=== PATIENT | female | born 1995 | race Caucasian/White ===

== ENCOUNTER 2016-11-14 14:16 | Emergency (ER) | payer OTHER ==
--- NOTE | ~2016-11-14 | CR126 ---
[facility] A Service of [facility] [place] [place] RADIOLOGY TEXT RESULTS PATIENT: GENARO GONZALEZ LOCATION: SED : 95 UNIT #: [id number] AGE: [address]: Jennifer Richardson APRN SEX: F ORDER DR: [id number] [place] [id number] MR#: [id number] Acc #: [id number] NAME: GENARO GONZALEZ : 1995 SEX: F STUDY DATE/TIME: 11/14/2016 14:05 UNIT: SED ROOM: STUDY DESCRIPTION: CR Foot Complete Min 3 View Lt Attending Physician: Jennifer Richardson A.P.R.N. Ordering Physician: Jennifer Richardson A.P.R.N. Primary Care Physician: No Primary Care Physician MEDICAL IMAGING REPORT This report is preliminary unless electronic signature is present. EXAM Left foot, 3 views. DATE OF EXAM 11/14/2016, 1405 hours. CLINICAL HISTORY 20-year-old who dropped a toy on her left great toe last night with foot pain. COMPARISON Left ankle film, 05/30/2012. FINDINGS AP, lateral and oblique views demonstrate overall normal bone density. There is no fracture, dislocation or periosteal reaction. Specifically, the great toe is normal. IMPRESSION Negative left foot. No fracture seen. Specifically, no fracture seen in the great toe. Dictated by... Krista Padgett M.D. THIS IS AN ELECTRONICALLY VERIFIED REPORT Krista Padgett M.D. at 11/17/2016 9:18 AM JADE/altagracia TD: 11/14/2016 21:04 JOB #: [id number] [facility] A Service [facility] RADIOLOGY TEXT RESULTS PATIENT: GENARO GONZALEZ LOCATION: SED : 95 UNIT #: [id number] AGE: [address]: Jennifer Richardson APRN SEX: F ORDER DR: MEDICAL IMAGING REPORT
[~2016-11-14 14:16] MED LIST: AMOXICILLIN875 MG PO; BACTRIM DS TABL1 TA1 PO; BCP PO; BENZONATATE PO; BIRTH CONTROL IMPLAN; CIPRO PO; FIORICET1 TAB DOB; FLAGYL PO; IBUPROFEN800 MG PO; KEFLEX500 M2 PO; KEFLEX500 MG PO; LOMOTIL WHITE2.5 M1 PO; NAPROXEN250 MG PO; NO MEDICATIONS; PHENERGAN12.5 M2 PR; PHENERGAN25 MG PO; PRENATAL1 TA1 PO; PYRIDIUM PO; ROBITUSSIN A-C S5 ML PO; VOLTAREN75 MG PO; VYVANSE20 MG; ZITHROMAX PO; ZOFRAN ODT4 MG PO; ZOFRAN ODT4 MG SL; ZOFRAN PO; ZOLOFT50 MG PO; [UNRECOGNIZED DRUG - REMARK]
== END 2016-11-14 14:59 | disposition home or self-care (01) ==
LOC: SED 14:16
DX: S90.32XA Contusion of left foot, initial encounter (principal); W22.8XXA Striking against or struck by other objects, initial encounter; Y92.009 Unspecified place in unspecified non-institutional (private) residence as the place of occurrence of the external cause
CPT/HCPCS: 29405; 73630; 99283

== ENCOUNTER 2017-01-07 11:29 | Emergency (ER) | payer OTHER ==
[2017-01-07 11:17] LABS: URINE SOURCE CLEAN CATCH
[2017-01-07 11:22] LABS: URINE APPEARANCE CLEAR; URINE BILIRUBIN NEG (NEG); URINE BLOOD NEG (NEG); URINE COLOR YELLOW; URINE GLUCOSE NEG (NORM); URINE KETONE NEG (NEG); URINE LEUKOCYTE ESTERASE NEG (NEG); URINE NITRATE NEG (NEG); URINE PH 6.5 (5-8); URINE PROTEIN NEG (NEG); URINE UROBILINOGEN 0.2 MG/DL (NORM)
[2017-01-07 11:23] LABS: MICRO INDICATED? NO
== END 2017-01-07 11:52 | disposition home or self-care (01) ==
LOC: SED 11:29
PROVIDERS: Emergency Medicine
DX: B34.9 Viral infection, unspecified (principal); F41.9 Anxiety disorder, unspecified; F31.9 Bipolar disorder, unspecified
CPT/HCPCS: 81003; 84703; 87651; 99282

== ENCOUNTER 2017-02-01 15:12 | Emergency (ER) | payer OTHER ==
--- NOTE | ~2017-02-01 | CR20 ---
[facility]. [facility] A Service of [facility] RADIOLOGY TEXT RESULTS PATIENT: GENARO GONZALEZ LOCATION: SED : 95 UNIT #: [id number] AGE: [address]: Shanti Mederos MD SEX: F ORDER DR: [id number] [place] [id number] E MR#: [id number] Acc #: [id number] NAME: GENARO GONZALEZ : 1995 SEX: F STUDY DATE/TIME: 02/01/2017 15:30 UNIT: SED ROOM: STUDY DESCRIPTION: CR Ankle Min 3 Views Lt Attending Physician: Shanti Mederos M.D. Ordering Physician: Shanti Mederos M.D. Primary Care Physician: Primary Care Physician No MEDICAL IMAGING REPORT This report is preliminary unless electronic signature is present. EXAM Left ankle, 02/01 INDICATION Pain after falling down stairs this morning. COMPARISON 05/30/2012 FINDINGS 3 views of the left ankle were obtained. There is lateral soft tissue swelling. No fracture or malalignment is seen. IMPRESSION Lateral soft tissue swelling, otherwise negative. Dictated by... Moris Oliveira Jr., M.D. THIS IS AN ELECTRONICALLY VERIFIED REPORT Moris Oliveira Jr., M.D. at 02/02/2017 8:45 PM SUHAIL/cherry TD: 02/01/2017 22:27 JOB #: [id number] MEDICAL IMAGING REPORT Page 1 of 1
== END 2017-02-01 16:03 | disposition home or self-care (01) ==
LOC: SED 15:12
DX: S93.402A Sprain of unspecified ligament of left ankle, initial encounter (principal); F17.200 Nicotine dependence, unspecified, uncomplicated; F32.9 Major depressive disorder, single episode, unspecified; F41.9 Anxiety disorder, unspecified; W19.XXXA Unspecified fall, initial encounter; Y92.009 Unspecified place in unspecified non-institutional (private) residence as the place of occurrence of the external cause
CPT/HCPCS: 29540; 73610; 99283